=== PATIENT | female | born 1980 | race Caucasian/White ===

== ENCOUNTER 2016-05-07 09:38 | Emergency (ER) | payer OTHER ==
[2016-05-07 10:23] LABS: BASOPHILS % 0.1 (0.0-1.5); EOSINOPHILS % 0.5 % (0.0-6.8); LYMPHOCYTES # 0.7 # k/uL (0.6-4.0); MEAN CORPUSCULAR HEMOGLOBIN 32.3 pg (28.0-34.0); MONOCYTES # 0.2 # k/uL (0.0-0.9); MONOCYTES % 2.4 % (0.0-11.0)
[2016-05-07 10:44] LABS: eGFR (African) > 60; eGFR (Non-African) > 60
[2016-05-07 11:20] LABS: APPEARANCE,URINE Clear (CLEAR); COLOR,URINE Yellow (YELLOW); OCCULT BLOOD,URINE 2+ (NEGATIVE); UROBILINOGEN URINE 0.2 Eu (0.2-1.0)
[2016-05-07 11:29] LABS: AMORPHOUS SEDIMENT,UR FEW (NEGATIVE)
--- NOTE | 2016-05-07 13:09 | ED Physician Documentation ---
Abdominal Pain - HISTORIAN Historian: patient - HPI Stated Complaint: Abdominal Discomfort Chief Complaint: Abdominal Pain Onset: days ago (1) Duration: sudden-onset Timing: still present Context: denies: out of country travel, bad food, recent trauma Severity: moderate Quality: aching Associated Symptoms: other (pain with movement) Exacerbated by: movements, other (bm's) Relieved by: nothing, other ( position) Further Comments: no - ROS CONST: no problems GI/: none CVS/RESP: none EYES/ENT: none MS/SKIN/LYMPH: none NEURO/PSYCH: none - SOCIAL HX Smoking History: cigarettes, less than 1 pack/day Alcohol Use: none Drug Use: none - FAMILY HX Family History: no significant history - PAST HX Past History: other (depression, anxiety, add) Ischemic Bowel Risk Factors: none Surgeries/Procedures: (x2) Immunizations: referred to PCP Home Medications: Ambulatory Orders Medication Instructions Recorded Citalopram Hydrobromide [Celexa] 20 mg PO QD 05/07/16 Dextroamphetamine Sulfate 5 mg PO DAILY 05/07/16 Allergies/Adverse Reactions: Allergies Allergy/AdvReac Type Severity Reaction Status Date / Time Penicillins Allergy Unknown Verified 05/07/16 10:57 - VITAL SIGNS Vital Signs: Vital Signs Temp Pulse Resp BP Pulse Ox 98 F 76 18 123/52 98 05/07/16 09:40 05/07/16 09:40 05/07/16 09:40 05/07/16 09:40 05/07/16 09:40 - REVIEWED ASSESSMENTS Nursing Assessment Reviewed: Yes Vitals Reviewed: Yes Progress - Results/Orders Results/Orders: cbc, cmp, ua, ct abdomen/pelvis ordered - Progress Progress: pt. stable entire time in er Critical Care Note - Critical Care Note Total Time (mins): 0 ED Results Lab/Radiology - Lab Results Lab Results: Lab Results 05/07/16 05/07/16 05/07/16 11:15 11:15 10:15 WBC RBC Hgb Hct MCV MCH MCHC RDW Plt Count Neut % (Auto) Lymph % (Auto) Troup % (Auto) Eos % (Auto) Baso % (Auto) Neut # Lymph # Troup # Eos # Baso # Reactive Lymphs % Reactive Lymphs # Sodium 138 mmol/L mmol/L (136-145) Potassium 4.0 mmol/L mmol/L (3.5-5.0) Chloride 107 mmol/L mmol/L (98-110) Carbon Dioxide 29 mmol/L mmol/L (20-32) BUN 9 mg/dL L mg/dL (10-26) Creatinine 0.5 mg/dL mg/dL (0.4-1.5) Est GFR ( Amer) > 60 (60 - ) Est GFR (Non-Af Amer) > 60 (60 - ) Glucose 100 mg/dL H mg/dL (70-99) Calcium 9.8 mg/dL mg/dL (8.5-10.5) Total Bilirubin 1.2 mg/dL mg/dL (0.2-1.2) AST 13 U/L U/L (0-41) ALT 10 U/L U/L (0-45) Alkaline Phosphatase 51 U/L U/L (46-116) Total Protein 7.3 g/dL g/dL (6.0-8.5) Albumin 4.5 g/dL g/dL (3.0-5.5) Amylase 58 U/L U/L (20-104) Urine Color Yellow (YELLOW) Urine Appearance Clear (CLEAR) Urine pH 8.0 (5.0 - 8.0) Ur Specific O'Brien 1.020 (1.010-1.030) Urine Protein Negative mg/dL mg/dL (NEGATIVE) Urine Ketones Negative mg/dL mg/dL (NEGATIVE) Urine Occult Blood 2+ H (NEGATIVE) Urine Nitrite Negative (NEGATIVE) Urine Bilirubin Negative (NEGATIVE) Urine Urobilinogen 0.2 Eu Eu (0.2-1.0) Ur Leukocyte Esterase 1+ H (NEGATIVE) Urine RBC 0-2 (0-2 HPF) Urine WBC 5-10 H (0-5 HPF) Urine WBC Clumps Present H (NEGATIVE) Ur Squamous Epith Cells Few (NEG-FEW) Amorphous Sediment Few H (NEGATIVE) Urine Bacteria Few H (NEGATIVE) Urine Glucose Negative mg/dL mg/dL (NEGATIVE) Urine HCG, Qual Negative (NEGATIVE) 05/07/16 10:15 WBC 9.00 K/ul K/ul (4.00-12.00) RBC 4.12 M/ul M/ul (3.90-5.20) Hgb 13.3 g/dL g/dL (12.0-16.0) Hct 39.4 % % (34.5-46.5) MCV 95.5 fl fl (80.0-100.0) MCH 32.3 pg pg (28.0-34.0) MCHC 33.8 g/dL g/dL (30.0-36.0) RDW 11.9 % % (11.3-14.3) Plt Count 182 K/mm3 K/mm3 (130-400) Neut % (Auto) 88.6 % H % (39.0-79.0) Lymph % (Auto) 7.9 % L % (16.0-50.0) Troup % (Auto) 2.4 % % (0.0-11.0) Eos % (Auto) 0.5 % % (0.0-6.8) Baso % (Auto) 0.1 (0.0-1.5) Neut # 8.0 # k/uL H # k/uL (1.4-7.7) Lymph # 0.7 # k/uL # k/uL (0.6-4.0) Troup # 0.2 # k/uL # k/uL (0.0-0.9) Eos # 0.0 # k/uL # k/uL (0.0-0.6) Baso # 0.0 # k/uL # k/uL (0.0-0.5) Reactive Lymphs % 0.6 % % (0.0-5.0) Reactive Lymphs # 0.1 # k/uL # k/uL (0.0-0.8) Sodium Potassium Chloride Carbon Dioxide BUN Creatinine Est GFR ( Amer) Est GFR (Non-Af Amer) Glucose Calcium Total Bilirubin AST ALT Alkaline Phosphatase Total Protein Albumin Amylase Urine Color Urine Appearance Urine pH Ur Specific O'Brien Urine Protein Urine Ketones Urine Occult Blood Urine Nitrite Urine Bilirubin Urine Urobilinogen Ur Leukocyte Esterase Urine RBC Urine WBC Urine WBC Clumps Ur Squamous Epith Cells Amorphous Sediment Urine Bacteria Urine Glucose Urine HCG, Qual - Radiology Radiology Impressions: ct abdomen pelvis shows distended bladder, some intestinal gas and biliary sludge - Orders Orders: ED Orders Category Date Time Status CT ABD & PELVIS W/O CON Stat Exams 05/07/16 Ordered AMYLASE Routine Lab 05/07/16 10:15 Completed CBC/PLATELET/DIFF Routine Lab 05/07/16 10:15 Completed CMP Routine Lab 05/07/16 10:15 Completed URINALYSIS Routine Lab 05/07/16 11:15 Completed URINE CULTURE Routine Lab 05/07/16 11:15 Received URINE HCG Routine Lab 05/07/16 11:15 Completed Abdominal Pain Physical Exam - Physical Exam General Appearance: moderate distress EENT: eye inspection normal, ENT inspection normal, pharynx normal, no signs of dehydration, KAISER, no nystagmus, TM's nml NECK: normal inspection, thyroid normal, supple RESPIRATORY: no resp distress, chest non-tender, breath sounds normal CVS: reg rate & rhythm, heart sounds normal ABDOMEN: soft, no organomegaly, normal bowel sounds, no distension, tenderness ( suprapubic area) BACK: normal inspection, no CVA tenderness SKIN: warm/dry, normal color EXTREMITIES: non-tender, normal range of motion, no evidence of injury, no edema NEURO: oriented X3, CN's nml as tested, motor nml, sensation nml, mood/affect nml, cognition normal Vital Signs: Vital Signs Temp Pulse Resp BP Pulse Ox 98 F 76 18 123/52 98 05/07/16 09:40 05/07/16 09:40 05/07/16 09:40 05/07/16 09:40 05/07/16 09:40 Discharge Clincal Impression: Urinary tract infection Qualifiers: Urinary tract infection type: acute cystitis Hematuria presence: with hematuria Qualified Code(s): N30.01 - Acute cystitis with hematuria Home Medications: Ambulatory Orders Citalopram Hydrobromide [Celexa] 20 mg PO QD 05/07/16 Dextroamphetamine Sulfate 5 mg PO DAILY 05/07/16 Comments: pt. discharged with scripts for bactrim ds 1 p.o. bid #20 and pyridium 200 mg # 15 1 p.o. tid. Condition: Stable Disposition: 01 HOME, SELF-CARE Decision to Admit: NO Decision Time: 13:00
[2016-05-07 13:12] VITALS: BP 120/68
--- NOTE | 2016-05-07 14:27 | Diagnostic Imaging Report ---
[facility] [address] [facility] [address] [place], [place]. 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 Sagittal and coronal reconstructions were performed. FINDINGS: The lung bases are clear. There is no liver or spleen lesion. No adrenal pancreas or aortic lesion is seen. The gallbladder is distended with possible stones or sludge. Kidneys are unremarkable. There is no retroperitoneal mass. Air-fluid levels are present in the small large bowel suggesting ileus or gastroenteritis. The appendix is not identified. An IUD is present in the uterus. The bladder is distended. No inguinal or pelvic mass is seen. IMPRESSION: Possible stones or gallbladder sludge. Ileus or gastroenteritis IUD in the uterus Distended urinary bladder Electronically signed on May 07, 2016 11:58:37 AM FINISHED GARMENT INSPECTOR by: Jules KRAUSE
== END 2016-05-07 13:06 | disposition home or self-care (01) ==
LOC: ED 09:38
DX: N30.01 Acute cystitis with hematuria (principal)
CPT/HCPCS: 36415; 74176; 80053; 81002; 81025; 82150; 85025; 87086; 99283

== ENCOUNTER 2016-08-05 21:24 | Emergency (ER) | payer MEDICAID ==
--- NOTE | 2016-08-05 22:32 | ED Physician Documentation ---
Chest Pain - HISTORIAN Historian: patient - HPI Stated Complaint: On-going cough, now with increasing Lt lateral chest discomfort with cough Chief Complaint: Cough/ Upper Respiratory Onset: days ago Timing: gradual onset Duration: waxing, waning Last known Well Date: 07/31/16 Last Known Well Time: 13:00 Severity: moderate Quality: aching Chest Pain Radiation: no radiation Worsened By: deep breaths, movement Relieved By: nothing Further Comments: no - ROS CONST: none MS/LYMPH: none GI/: none EYES/ENT: none SKIN/ENDO: none NEURO/PSYCH: none - PAST HX [place] risk factors: no pertinent history DVT/PE Risk Factors: none TAD/AAA risk factors: none Neuro deficit: none GI disease: none Lung disease: none Surgeries/Procedures: none Allergies/Adverse Reactions: Allergies Allergy/AdvReac Type Severity Reaction Status Date / Time Penicillins Allergy Unknown Verified 05/07/16 10:57 Home Medications: Ambulatory Orders Medication Instructions Recorded Citalopram Hydrobromide [Celexa] 20 mg PO QD 05/07/16 Dextroamphetamine/Amphetamine 10 mg PO AC15 08/05/16 [Adderall 10 mg Tablet] - SOCIAL HX Smoking History: cigarettes, greater than 1 pack/day Alcohol Use: none Drug Use: none - FAMILY HX Family HX: none - VITAL SIGNS Vital Signs: Vital Signs Temp Pulse Resp BP Pulse Ox 99 F 86 16 118/79 98 08/05/16 21:25 08/05/16 21:25 08/05/16 21:25 08/05/16 21:25 08/05/16 21:25 - REVIEWED ASSESSMENTS Nursing Assessment Reviewed: Yes Vitals Reviewed: Yes Progress - Progress Progress: here with left chest wall tenderness worsening with deep breath-- noted with wall tenderness no creptous noted -- CXR noted with right middle lobe patch infiltrate and rib without any fracture-- will go ahead and treat with antibiotics and encourage to quit or cut back on smoking-- - EKG/XRAY/CT XRAY: chest (R mid lobe infiltrate) Chest Pain Physical Exam - EXAM General Appearance: no acute distress EENT: eye inspection normal Neck: nml inspection Respiratory: no resp. distress, other (left axillary chest wall tenderness ) CVS: reg. rate & rhythm Abdomen: soft, no organomegaly Neuro: oriented X3 Discharge Clincal Impression: Pneumonia Qualifiers: Pneumonia type: due to unspecified organism Laterality: right Lung location: middle lobe of lung Qualified Code(s): J18.1 - Lobar pneumonia, unspecified organism Referrals: Joao Pascual MD [Primary Care Provider] - 2 Days Home Medications: Ambulatory Orders Citalopram Hydrobromide [Celexa] 20 mg PO QD 05/07/16 Dextroamphetamine/Amphetamine [Adderall 10 mg Tablet] 10 mg PO AC15 08/05/16 Condition: Fair Disposition: 01 HOME, SELF-CARE Decision to Admit: NO Decision Time: 23:36
--- NOTE | 2016-08-05 23:31 | Diagnostic Imaging Report ---
VIANCA BENITEZ [facility] [address] [facility] [address] Report Submission Date: August 05, 2016 11:30:48 PM CDT Patient Study Name: YING LEIVA Date: August 05, 2016 10:58:16 PM CDT Modality Type: CR Gender: F Description: CHEST : 82 Institution: [facility] Physician: IVANCA BENITEZ Chest - two views Clinical history: Cough. Findings: Examination of the chest in PA and lateral views demonstrates patchy infiltrate in the right middle lobe seen best on the lateral view. The left lung is clear. Cardiovascular and mediastinal silhouettes are within normal limits. Impression: 1. Patchy right middle lobe infiltrate. Electronically signed on August 05, 2016 11:30:48 PM CDT by: Davie KRAUSE
--- NOTE | 2016-08-05 23:32 | Diagnostic Imaging Report ---
VIANCA BENITEZ [facility] [address] [facility] [address] [address] Report Submission Date: August 05, 2016 11:31:50 PM CDT Patient Study Name: YING LEIVA Date: August 05, 2016 11:04:41 PM CDT Modality Type: CR Gender: F Description: CHEST : 82 Institution: [facility] Physician: VIANCA BENITEZ Left ribs - three views Clinical history: Left axillary wall tenderness. Findings: Examination of the left ribs in AP, oblique and coned-down views of the lower ribs fails to demonstrate evidence of fracture. There is no pneumothorax. Impression: 1. No fracture. Electronically signed on August 05, 2016 11:31:50 PM CDT by: Davie KRAUSE
[2016-08-05 23:50] VITALS: BP 122/76
== END 2016-08-05 23:45 | disposition home or self-care (01) ==
LOC: ED 21:24
DX: J18.1 Lobar pneumonia, unspecified organism (principal)
CPT/HCPCS: 71020; 71100; 99283

== ENCOUNTER 2017-09-08 13:12 | Emergency (ER) | payer MEDICAID, OTHER ==
--- NOTE | 2017-09-08 13:16 | ED Physician Documentation ---
General Adult - HISTORIAN Historian: patient - HPI Stated Complaint: neck pain Chief Complaint: Neck Pain Onset: days ago (14 days ) Timing: still present Severity: moderate Further Comments: yes (she reports two weeks ago she started to have neck pain ( upper) and she denies any injury - she did go to urgent care and she was given NSAID and muscle relaxer. She states the pain has only gotten progressively worse. She reports the pain is slightly less when she holds pressure to the back of her head /neck area. She states it is worse with movement and work . She is trying to get into see the chiropractor and there is no openings until Wednesday. After discussion she states that she has some issues with her speech when the pain is "bad" denies any weakness. No head injury . She stopped the meds she was given due to "it didnt help") Last known Well Code/Unknown Code: Unknown - ROS CONST: no problems EYES/ENT: none CVS/RESP: none GI/: none MS/SKIN/LYMPH: none NEURO/PSYCH: headache - PAST HX Past History: other (depression, ADD ) Surgeries/Procedures: other (Appy and csection ) Immunizations: UTD Allergies/Adverse Reactions: Allergies Allergy/AdvReac Type Severity Reaction Status Date / Time Penicillins Allergy Unknown Verified 09/08/17 14:12 Home Medications: Ambulatory Orders Medication Instructions Recorded Citalopram Hydrobromide [Celexa] 20 mg PO QD 05/07/16 Dextroamphetamine/Amphetamine 10 mg PO AC15 08/05/16 [Adderall 10 mg Tablet] - SOCIAL HX Smoking History: cigarettes Alcohol Use: rarely Drug Use: none - FAMILY HX Family History: No - VITAL SIGNS Vital Signs: Vital Signs Temp Pulse Resp BP Pulse Ox 122/76 08/05/16 23:48 - REVIEWED ASSESSMENTS Nursing Assessment Reviewed: Yes Vitals Reviewed: Yes Progress - Progress Progress: 1445 Moving her neck better. Mild pain improvement DG ED Results Lab/Radiology - Radiology Radiology Impressions: Head CT without contrast History: Headaches and neck pain without injury Technique: Axial images were obtained from the skull base to the vertex without any contrast. Findings: The ventricular system is normal in size and configuration. There is normal parenchymal attenuation. There is no positive mass effect or intra/extra- axial hemorrhage. Visualized paranasal sinuses and mastoid air cells are clear. The calvarium is intact. Impression: No intracranial abnormality. Electronically signed on Sep 08, 2017 2:15:08 PM CDT by: Shante Valencia CT cervical spine without contrast History: Neck pain. No injury. Technique: Axial images were obtained through the cervical spine. Sagittal and coronal reconstructions were performed. Findings: There is no acute osseous abnormality. There are no significant degenerative findings. The dens is intact. Vertebral body height and intervertebral disc space height is maintained and alignment is normal. Impression: Normal CT of the cervical spine. Electronically signed on Sep 08, 2017 2:18:25 PM CDT by: Shante Valencia General Adult Physical Exam - PHYSICAL EXAM GENERAL APPEARANCE: mild distress EENT: eye inspection normal, ENT inspection normal, pharynx normal, KAISER NECK: normal inspection, other (pain with movement to the right and left or flexion pain with palpation along cervical spine ). No: lymphadenopathy RESPIRATORY: no resp distress, chest non-tender CVS: reg rate & rhythm, heart sounds normal, equal pulses, no murmur ABDOMEN: soft, normal bowel sounds SKIN: warm/dry, normal color EXTREMITIES: non-tender, normal range of motion, no edema NEURO: oriented X3, CN's nml as tested, motor nml, sensation nml, mood/affect nml, cognition normal Discharge Clincal Impression: Cervicalgia Referrals: Joao Pascual MD [Primary Care Provider] - 2 Days Additional Instructions: 1. continue with meds given 2. Follow up with PCP on continued pain 3. Ice/heat 4. Return to ER for added concerns or increase in pain Condition: Stable Disposition: 01 HOME, SELF-CARE Decision to Admit: NO Date of Decison to Admit: 09/08/17 Decision Time: 14:21
[2017-09-08 14:14] VITALS: BP 125/80
[2017-09-08] MEDS: methylPREDNISolone ACETATE 40 MG/ML VIAL IM ONE (14:30)
[2017-09-08] MEDS: KETOROLAC TROMETHAMINE 60 MG/2 ML VIAL IM ONE (14:31)
[2017-09-08] MEDS: methylPREDNISolone SOD SUCC 40 MG/ML VIAL ONE (14:31)
[2017-09-08] MEDS: KETOROLAC TROMETHAMINE 60 MG/2 ML VIAL ONE (14:31)
--- NOTE | 2017-09-08 17:44 | Diagnostic Imaging Report ---
CHRISTOPHER MESSER [facility] [address] [facility] [address] [place], [place]. [address] Report Submission Date: Sep 08, 2017 2:18:25 PM CDT Patient Study Name: YING LEIVA Date: Sep 08, 2017 1:48:02 PM CDT Modality Type: CT\SR Gender: F Description: CT C-SPINE W/O CONTRAS : 82 Institution: [facility] Physician: CHRISTOPHER MESSER CT cervical spine without contrast History: Neck pain. No injury. Technique: Axial images were obtained through the cervical spine. Sagittal and coronal reconstructions were performed. Findings: There is no acute osseous abnormality. There are no significant degenerative findings. The dens is intact. Vertebral body height and intervertebral disc space height is maintained and alignment is normal. Impression: Normal CT of the cervical spine. Electronically signed on Sep 08, 2017 2:18:25 PM CDT by: Shante KRAUSE
--- NOTE | 2017-09-08 17:44 | Diagnostic Imaging Report ---
CHRISTOPHER MESSER [facility] [address] [facility] [address] [place], [place]. [address] Report Submission Date: Sep 08, 2017 2:15:08 PM CDT Patient Study Name: YING LEIVA Date: Sep 08, 2017 1:45:20 PM CDT Modality Type: CT\SR Gender: F Description: CT BRAIN W/O CONTRAST : 82 Institution: [facility] Physician: CHRISTOPHER MESSER Head CT without contrast History: Headaches and neck pain without injury Technique: Axial images were obtained from the skull base to the vertex without any contrast. Findings: The ventricular system is normal in size and configuration. There is normal parenchymal attenuation. There is no positive mass effect or intra/extra- axial hemorrhage. Visualized paranasal sinuses and mastoid air cells are clear. The calvarium is intact. Impression: No intracranial abnormality. Electronically signed on Sep 08, 2017 2:15:08 PM CDT by: Shante KRAUSE
== END 2017-09-08 14:45 | disposition home or self-care (01) ==
LOC: ED 13:12
DX: M54.2 Cervicalgia (principal)
CPT/HCPCS: 70450; 72125; J1030; J1885; 96374; 96375

== ENCOUNTER 2017-11-17 15:39 | Emergency (ER) | payer MEDICAID, OTHER ==
--- NOTE | 2017-11-17 16:31 | ED Physician Documentation ---
General Adult - HISTORIAN Historian: patient - HPI Stated Complaint: DENTAL PAIN Chief Complaint: General Adult Onset: days ago Timing: still present Severity: moderate Further Comments: yes (Pt is a 37 yo female with dental pain. Pt has poor dentition, had recent root canal and says she is planning 2 additional root canal. Pain is in L lower jaw. No fever, n/v.) - ROS CONST: no problems EYES/ENT: other (dental pain) CVS/RESP: none GI/: none MS/SKIN/LYMPH: none - PAST HX Past History: other (anxiety/depression) Allergies/Adverse Reactions: Allergies Allergy/AdvReac Type Severity Reaction Status Date / Time Penicillins Allergy Unknown Verified 11/17/17 15:56 Home Medications: Ambulatory Orders Medication Instructions Recorded Citalopram Hydrobromide [Celexa] 20 mg PO QD 05/07/16 Dextroamphetamine/Amphetamine 10 mg PO AC15 08/05/16 [Adderall 10 mg Tablet] Clindamycin HCl 300 mg PO Q8H #30 capsule 11/17/17 - SOCIAL HX Smoking History: cigarettes - FAMILY HX Family History: No - VITAL SIGNS Vital Signs: Vital Signs Temp Pulse Resp BP Pulse Ox 97.3 F L 85 18 125/80 99 11/17/17 15:51 11/17/17 15:51 11/17/17 15:51 11/17/17 15:51 11/17/17 15:51 - REVIEWED ASSESSMENTS Nursing Assessment Reviewed: Yes Vitals Reviewed: Yes Progress - Progress Progress: Rx Clindamycin 300 mg. Take one by mouth every 8 hours for 10 days. 1RF. Follow up with dentist. General Adult Physical Exam - PHYSICAL EXAM GENERAL APPEARANCE: mild distress EENT: other (poor dentition, tenderness, dental caries, L lower jaw) NECK: normal inspection, supple RESPIRATORY: no resp distress, chest non-tender CVS: reg rate & rhythm BACK: normal inspection SKIN: warm/dry, normal color EXTREMITIES: non-tender, normal range of motion NEURO: oriented X3, motor nml, sensation nml Discharge Clincal Impression: Pain, dental Prescriptions: Clindamycin HCl 300 mg PO Q8H #30 capsule Referrals: Joao Pascual MD [Primary Care Provider] - Condition: Good Disposition: 01 HOME, SELF-CARE Decision to Admit: NO Decision Time: 16:35
== END 2017-11-17 16:38 | disposition home or self-care (01) ==
LOC: ED 15:39
DX: K08.89 Other specified disorders of teeth and supporting structures (principal)

== ENCOUNTER 2018-03-20 17:29 | Observation (INO) | payer OTHER, MEDICAID ==
--- NOTE | 2018-03-20 17:30 | ED Physician Documentation ---
General Adult - HISTORIAN Historian: patient - HPI Stated Complaint: cough and fever x 4 days Chief Complaint: Fever Onset: days ago (4) Timing: still present Severity: moderate Further Comments: yes (She reports since Wednesday fever and cough. She went to urgent care and reports she was told she had a virus and let it run its course. She states today the fever has increased she just took meds one hour ago for fever and she has productive cough, headache and fatigue) Last known Well Code/Unknown Code: Unknown - ROS CONST: fever, weakness EYES/ENT: sore throat, nasal drainage, nasal congestion CVS/RESP: shortness of breath, cough GI/: denies: problems urinating, vomiting, nausea, diarrhea MS/SKIN/LYMPH: denies: neck pain, rash NEURO/PSYCH: headache - PAST HX Past History: other (depression ) Allergies/Adverse Reactions: Allergies Allergy/AdvReac Type Severity Reaction Status Date / Time Penicillins Allergy Unknown Verified 03/20/18 18:21 Home Medications: Ambulatory Orders Medication Instructions Recorded Citalopram Hydrobromide [Celexa] 40 mg PO QD 05/07/16 Dextroamphetamine/Amphetamine 20 mg PO AC15 08/05/16 [Adderall 10 mg Tablet] - SOCIAL HX Smoking History: cigarettes Alcohol Use: none Drug Use: none - FAMILY HX Family History: No - VITAL SIGNS Vital Signs: Vital Signs Temp Pulse Resp BP Pulse Ox 125/80 11/17/17 16:38 - REVIEWED ASSESSMENTS Nursing Assessment Reviewed: Yes Vitals Reviewed: Yes Progress - Progress Progress: 1915: will admit pt obs she is agreeable DG ED Results Lab/Radiology - Radiology Radiology Impressions: History: 37/F CXR - COUGH AND FEVER PT STATES - COUGH x2 DAYS, AND CHEST PAIN Findings: The heart size is normal. The lungs are clear. There is no pleural effusion or pneumothorax identified. The osseous structures are normal. Impression: 1. No acute pulmonary disease. Electronically signed on Mar 20, 2018 6:55:53 PM TOOL SALVAGE WORKER by: Irwin Nguyen General Adult Physical Exam - PHYSICAL EXAM GENERAL APPEARANCE: mild distress EENT: eye inspection normal, pharyngeal erythema, dry mucous membranes RESPIRATORY: no resp distress, other (decreased breath sounds right lower lobe) CVS: reg rate & rhythm, heart sounds normal ABDOMEN: soft BACK: normal inspection, no CVA tenderness SKIN: warm/dry, normal color EXTREMITIES: non-tender, normal range of motion, no edema NEURO: oriented X3 Discharge Clincal Impression: Influenza A Urinary tract infection Qualifiers: Hematuria presence: without hematuria Comments: 1. Bactrim DS take 1 by mouth BID x 10 days 2. Tamiflu 75 mg take 1 by mouth BID x 5 days 3. ProAir use 2 puffs every 4 hours as needed for cough 4. Increase fluids 5. Return to ER for any increase in symptoms or concerns refuses to stay in hospital Condition: Fair Disposition: 07 AGAINST MEDICAL ADVICE Decision to Admit: [id number] Date of Decison to Admit: 03/20/18 Decision Time: 19:15
[2018-03-20] MEDS ORDERED: 0.9 % SODIUM CHLORIDE 1,000 ML IV ONE (17:49)
[2018-03-20] MEDS ORDERED: KETOROLAC TROMETHAMINE 30 MG/1ML VIAL ONE (18:16)
[2018-03-20] MEDS ORDERED: KETOROLAC TROMETHAMINE 30 MG/1ML VIAL IVP ONE (18:17)
[2018-03-20 18:35] VITALS: BP 108/60
--- NOTE | 2018-03-20 19:03 | Diagnostic Imaging Report ---
CHRISTOPHER MESSER [facility] [address] [facility] [address] [place], [place]. 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 The lungs are clear. There is no pleural effusion or pneumothorax identified. The osseous structures are normal. Impression: 1. No acute pulmonary disease. Electronically signed on Mar 20, 2018 6:55:53 PM OTHER WOOD PROCESSING MACHINE OPERATOR by: Irwin KRAUSE
[2018-03-20] MEDS ORDERED: CIPROFLOXACIN/D5W 400 MG in PREMIX BAG 1 BAG IV SCH (19:30)
[2018-03-20] MEDS ORDERED: 0.9 % SODIUM CHLORIDE 1,000 ML IV SCH (19:30)
[2018-03-20] MEDS ORDERED: IPRATROPIUM/ALBUTEROL SULFATE 3 ML AMPUL.NEB NEB SCH (21:00)
[2018-03-21 07:00] LABS: BASOPHILS % 0.3 (0.0-1.5); EOSINOPHILS % 2.7 % (0.0-6.8); MEAN CORPUSCULAR HEMOGLOBIN 30.4 pg (28.0-34.0); MONOCYTES % 6.3 % (0.0-11.0); NEUTROPHILS # 3.9 # k/uL (1.4-7.7)
[2018-03-21 07:01] LABS: eGFR (Non-African) > 60
[2018-03-21 07:24] LABS: OCCULT BLOOD,URINE TRACE-LYSED (NEGATIVE)
== END 2018-03-20 19:51 | disposition left against medical advice (07) ==
LOC: ED 17:29 → SOUTH 19:06
PROVIDERS: ADMIT Nurse Practitioner Family; ATTEND Nurse Practitioner Family
DX: J11.1 Influenza due to unidentified influenza virus with other respiratory manifestations (principal); N39.0 Urinary tract infection, site not specified
CPT/HCPCS: 71046; 80053; 81002; 85025; 87040; 87070; 87086; 87186; 87400; 87880; 99283; J1885; G0378; J7030; S1016